=== PATIENT | female | born 2000 | race Caucasian/White ===

== ENCOUNTER 2022-07-21 00:50 | Inpatient (IN) | payer OTHER ==
[2022-07-21] MEDS: DEXTROSE 5%-LACTATED RINGERS 1,000 ML IV SCH ×2 (03:00→09:40)
[2022-07-21 03:53] LABS: BASO % 0.5 % (0-2.0); EOS % 0.6 % (0-4.5); HEMATOCRIT 35.5 % (32.4-45.2); HEMOGLOBIN 11.5 GM/dL (10.7-15.3); LYMPH % 23.5 % (8-40); MCH 26.6 pg (25.7-33.7); MCHC 32.4 g/dl (32.0-36.0); MEAN CELL VOLUME 82.2 fl (80-96); MEAN PLT VOLUME 9.1 fl (7.5-11.1); MONO % 5.6 % (3.8-10.2); NEUT % 69.8 % (42.8-82.8); PLATELET COUNT 255 10^3/uL (134-434); RBC 4.32 M/mm3 (3.60-5.2); RDW 15.5 % (11.6-15.6); WHITE BLOOD COUNT 11.8 K/mm3 (4.0-10.0)
[2022-07-21 03:57] VITALS: BMI 32.8
[2022-07-21 04:01] LABS: INR 0.96 (0.83-1.09); PROTHROMBIN TIME (PATIENT) 11.1 SEC (9.7-13.0)
[2022-07-21 04:04] LABS: ACTIVATED PTT 31.3 SECONDS (25.2-36.5)
[2022-07-21 04:10] LABS: BLOOD UREA NITROGEN 9.4 mg/dL (7-18); CALCIUM 8.7 mg/dL (8.5-10.1)
[2022-07-21 04:11] LABS: ALBUMIN 2.8 g/dl (3.4-5.0)
[2022-07-21 04:13] LABS: CREATININE 0.4 mg/dL (0.55-1.3)
[2022-07-21 04:15] LABS: BILIRUBIN,TOTAL 0.3 mg/dL (0.2-1); TOT PROT 6.7 g/dl (6.4-8.2)
[2022-07-21 05:06] LABS: HIV INTERPRETATION NEGATIVE (NEGATIVE)
[2022-07-21] MEDS ORDERED: OXYTOCIN 30 UNITS in 0.9% NS 30 UNIT/500 ML INFUS.BAG IVPB SCH (07:00)
[2022-07-21] MEDS ORDERED: OXYTOCIN 30 UNITS in 0.9% NS 30 UNIT/500 ML INFUS.BAG IVPB ONE (07:44)
[2022-07-21] MEDS ORDERED: morphine SULFATE 4 MG/ML VIAL IVPB ONE (09:16)
[2022-07-21] MEDS ORDERED: morphine SULFATE 4 MG/ML VIAL ONE (09:32)
[2022-07-21] MEDS ORDERED: SODIUM CHLORIDE 500 ML IV STA (10:46)
[2022-07-21] MEDS ORDERED: SODIUM CHLORIDE 1,000 ML IV STA (13:22)
[2022-07-21] MEDS ORDERED: FENTANYL/BUPIVACAINE/NS/PF - PCEA - 50 ML DISP.SYRIN EP ONE (13:27)
[2022-07-21] MEDS: FENTANYL/BUPIVACAINE/NS/PF - PCEA - 50 ML DISP.SYRIN EP SCH (14:20)
[2022-07-21] MEDS ORDERED: NALOXONE HCL 0.4 MG/ML VIAL IVPUSH PRN (14:54)
[2022-07-21] MEDS ORDERED: OXYTOCIN 20 UNITS in 0.9% NS 20 UNIT/1,000 ML INFUS.BAG IV ONE (15:54)
[2022-07-21] MEDS ORDERED: ACETAMINOPHEN 325 MG TABLET (FP) PO PRN (17:12)
[2022-07-21] MEDS ORDERED: BENZOCAINE 28 GM HEMORRHOIDAL OINTMENT TP PRN (17:12)
[2022-07-21] MEDS ORDERED: WITCH HAZEL 50% (TUCKS) 40 PAD/JAR PAD TP PRN (17:12)
[2022-07-21] MEDS ORDERED: OXYTOCIN 20 UNITS in 0.9% NS 20 UNIT/1,000 ML INFUS.BAG IV SCH (17:15)
[2022-07-21] MEDS: FERROUS SO4 325 MG TABLET (FP) PO SCH (21:37)
[2022-07-22] MEDS: IBUPROFEN 600 MG TABLET (FP) PO PRN ×2 (03:49→21:47)
[2022-07-22 08:57] LABS: BASO % 0.2 % (0-2.0); EOS % 0.3 % (0-4.5); HEMATOCRIT 32.9 % (32.4-45.2); HEMOGLOBIN 10.8 GM/dL (10.7-15.3); LYMPH % 10.9 % (8-40); MCH 27.1 pg (25.7-33.7); MCHC 32.8 g/dl (32.0-36.0); MEAN CELL VOLUME 82.4 fl (80-96); MEAN PLT VOLUME 11.2 fl (7.5-11.1); MONO % 6.2 % (3.8-10.2); NEUT % 82.4 % (42.8-82.8); PLATELET COUNT 222 10^3/uL (134-434); RBC 3.99 M/mm3 (3.60-5.2); RDW 15.4 % (11.6-15.6); WHITE BLOOD COUNT 15.5 K/mm3 (4.0-10.0)
[2022-07-22] MEDS: FERROUS SO4 325 MG TABLET (FP) PO SCH ×2 (09:07→21:47)
[2022-07-22] MEDS: PRENATAL VITAMINS W/ FOLIC ACID TABLET (FP) PO SCH (09:07)
[2022-07-22] MEDS: FENTANYL/BUPIVACAINE/NS/PF - PCEA - 50 ML DISP.SYRIN EP SCH (21:03)
[2022-07-22] MEDS: DEXTROSE 5%-LACTATED RINGERS 1,000 ML IV SCH (21:03)
[2022-07-22 22:43] VITALS: RESP 18; TEMP 97.9
[2022-07-23 08:56] VITALS: BP 102/63; PULSE 91
[2022-07-23] MEDS: IBUPROFEN 600 MG TABLET (FP) PO PRN (09:16)
[2022-07-23] MEDS: PRENATAL VITAMINS W/ FOLIC ACID TABLET (FP) PO SCH (09:16)
[2022-07-23] MEDS: FERROUS SO4 325 MG TABLET (FP) PO SCH (09:16)
== END 2022-07-23 12:27 | disposition home or self-care (01) | DRG 560 ==
LOC: JDEL 00:50 → JLDR 01:50 → J3W 21:10
PROVIDERS: ADMIT Obstetrics & Gynecology Maternal & Fetal Medicine; ATTEND Obstetrics & Gynecology Maternal & Fetal Medicine
PROC: 10E0XZZ Delivery of Products of Conception, External Approach (ICD-10-PCS; principal; 2022-07-21)
DX: O80 Encounter for full-term uncomplicated delivery (principal); Z3A.39 39 weeks gestation of pregnancy; Z37.0 Single live birth
CPT/HCPCS: 36415; 80053; 85025; 85610; 85730; 86780; 86850; 86900; 86901; 87340; 87389; C9803-CS; U0003; U0005